=== PATIENT | male | born 1995 ===

== ENCOUNTER 2024-10-02 15:20 | Emergency (ER) | payer OTHER, BC ==
[~2024-10-02] VITALS: Ht 190.5 cm; Wt 102.1 kg
== END 2024-10-02 17:41 | disposition home or self-care (01) ==
LOC: ER 15:20
DX: M25.562 Pain in left knee (principal); Z88.1 Allergy status to other antibiotic agents; Z59.89 Other problems related to housing and economic circumstances; V00.321A Fall from snow-skis, initial encounter
CPT/HCPCS: 73562-LT; 99283-25